=== PATIENT | female | born 1935 | race African-American/Black ===

== ENCOUNTER 2017-01-20 11:29 | Emergency (ER) | payer MEDICARE, OTHER ==
[~2017-01-20] VITALS: Ht 170.2 cm; Wt 80.0 kg
[~2017-01-20 11:29] MED LIST: LORA2TAB95; ZETA
[2017-01-20] MEDS ORDERED: TRAM50TA3 PO (11:43)
[2017-01-20] MEDS ORDERED: ZET10 PO (11:43)
[2017-01-20] MEDS ORDERED: KETOROLAC 30MG/ML VIAL IM ONE (14:45)
[2017-01-20 14:59] VITALS: BP 144/63
== END 2017-01-20 16:34 | disposition home or self-care (01) ==
LOC: ER 13:43
DX: G89.29 Other chronic pain (principal); M54.5 Low back pain; M79.604 Pain in right leg; M79.605 Pain in left leg
CPT/HCPCS: 93970; 96372; 99284; J1885

== ENCOUNTER 2018-08-17 09:51 | Inpatient (IN) | payer MEDICARE, OTHER ==
[~2018-08-17] VITALS: Ht 170.2 cm; Wt 80.1 kg
[~2018-08-17 09:51] MED LIST changes: +TRAM50TA3 PO; +ZET10 PO; -ZETA
[2018-08-17] MEDS ORDERED: ALPR-340 PO (10:12)
[2018-08-17] MEDS ORDERED: LATA2.5D2 OP (10:12)
[2018-08-17] MEDS ORDERED: DONE10TA43 PO (10:12)
[2018-08-17] MEDS ORDERED: KETOROLAC 30MG/ML VIAL IV STA (10:20)
[2018-08-17] MEDS ORDERED: ASPIRIN 81MG TABLET PO ONE (10:30)
[2018-08-17 10:35] LABS: BASOPHILS % 1.1 % (0.0-2.0); EOSINOPHILS % 0.4 % (0.0-5.0); HEMATOCRIT. 42.1 % (36.0-48.0); HEMOGLOBIN. 13.9 g/dL (12.0-16.0); LYMPHOCYTES % 26.4 % (20.0-50.0); MEAN CORPUSCULAR HEMOGLOBIN 31.1 pg (28.0-32.0); MEAN CORPUSCULAR VOLUME 94.2 fL (81.0-99.0); MEAN PLATELET VOLUME 9.3 fl (7.4-10.4); MONOCYTES % 9.9 % (2.0-8.0); NEUTROPHILS % 62.2 % (40.0-76.0); PLATELET 223 x1000/uL (130-400); RED BLOOD CELL COUNT 4.46 mill/uL (4.2-5.4); RED CELL DISTRIBUTION WIDTH 12.7 % (11.6-14.6)
[2018-08-17 10:41] LABS: CHLORIDE 105 mEq/L (98-107)
[2018-08-17] MEDS ORDERED: ALPRAZOLAM 0.5 MG TABLET PO PRN (12:00)
[2018-08-17] MEDS ORDERED: CLONIDINE 0.1MG TABLET PO PRN ×2 (12:00→14:00)
[2018-08-17] MEDS ORDERED: LORAZEPAM 0.5MG TABLET PO ONE (12:00)
[2018-08-17] MEDS ORDERED: ACETAMINOPHEN 325MG TABLET PO PRN ×2 (12:00→14:00)
[2018-08-17] MEDS ORDERED: ONDANSETRON HCL 4MG/2ML INJ IV PRN ×2 (12:00→14:00)
[2018-08-17] MEDS ORDERED: DOCUSATE SODIUM 100MG CAPSULE PO PRN ×2 (12:00→14:00)
[2018-08-17] MEDS: EZETIMIBE 10MG TABLET PO SCH (13:00)
[2018-08-17] MEDS: DONEPEZIL HCL 10MG TABLET PO SCH (13:00)
[2018-08-17] MEDS ORDERED: ENOXAPARIN 40MG/0.4ML SYR SUBCUT SCH (13:00)
[2018-08-17] MEDS ORDERED: ACETAMINOPHEN 650MG SUPP PR PRN (14:00)
[2018-08-17] MEDS ORDERED: IPRATROPIUM/ALBUTEROL 0.5-3(2.5)MG/3ML NEB INH PRN (14:00)
[2018-08-17] MEDS ORDERED: MAGNESIUM/ALUMINUM HYDROXIDE/SIMETHICONE 30ML UDC PO PRN (14:00)
[2018-08-17] MEDS ORDERED: HYDROCODONE/ACETAMINOPHEN 5/325MG TABLET PO PRN (14:00)
[2018-08-17] MEDS: NITROGLYCERIN OINT 1GM/INCH UDPKT TD SCH ×2 (14:00→20:26)
[2018-08-17] MEDS ORDERED: NA PHOS,M-B/NA PHOS,DI-BA ENEMA 118ML PR PRN (14:00)
[2018-08-17] MEDS ORDERED: DIPHENHYDRAMINE 50MG/ML VIAL IV PRN (14:00)
[2018-08-17] MEDS ORDERED: GUAIFENESIN 200MG/10ML SUGAR FREE UDC PO PRN (14:00)
[2018-08-17] MEDS ORDERED: LORAZEPAM 0.5MG TABLET PO PRN (14:00)
[2018-08-17 14:10] LABS: CREATINE KINASE 110 IU/L (26-192)
[2018-08-17 14:30] VITALS: BP 125/53
[2018-08-17] MEDS ORDERED: ASPIRIN 81MG EC TABLET PO NR (15:00)
[2018-08-17] MEDS ORDERED: REGADENOSON 0.4 MG/5 ML IV NR (15:01)
[2018-08-17 16:00] VITALS: BP 129/70
[2018-08-17 17:00] LABS: CREATINE KINASE 111 IU/L (26-192)
[2018-08-17 17:01] LABS: CREATINE KINASE MB FRACTION < 1.0 ng/mL (0.5-3.6)
[2018-08-17 18:32] LABS: CLARITY URINE CLOUDY (CLEAR); COLOR URINE DARK YELLOW (YELLOW); KETONES URINE TRACE (NEGATIVE); LEUKOCYTE ESTERASE URINE NEGATIVE (NEGATIVE); NITRITE URINE NEGATIVE (NEGATIVE); OCCULT BLOOD URINE 2+ (NEGATIVE); PROTEIN URINE TRACE (NEGATIVE); SPECIFIC GRAVITY URINE 1.035 (1.005-1.030)
[2018-08-17 18:55] LABS: *AMPHETAMINES SCREEN URINE NEGATIVE (NEGATIVE); *BARBITURATES SCREEN URINE NEGATIVE (NEGATIVE); *BENZODIAZEPINES SCREEN URINE PRESUMTIVE POSITIVE (NEGATIVE); *COCAINE SCREEN URINE NEGATIVE (NEGATIVE); METHADONE URINE SCREEN NEGATIVE (NEGATIVE); OPIATES URINE SCREEN NEGATIVE (NEGATIVE)
[2018-08-17 18:56] LABS: CANNABINOID URINE SCREEN NEGATIVE (NEGATIVE); PHENCYCLIDINE URINE SCREEN NEGATIVE (NEGATIVE)
[2018-08-17 20:00] VITALS: BP 120/51
[2018-08-17] MEDS: LATANOPROST 0.005% OPHTH DROPS 2.5ML BOTHEYE SCH (20:25)
[2018-08-17] MEDS: ATORVASTATIN CALCIUM 10MG TABLET PO SCH (20:26)
[2018-08-18] VITALS: BP 121/63
[2018-08-18 01:10] LABS: CREATINE KINASE 99 IU/L (26-192)
[2018-08-18 01:11] LABS: CREATINE KINASE MB FRACTION < 1.0 ng/mL (0.5-3.6)
[2018-08-18] MEDS: NITROGLYCERIN OINT 1GM/INCH UDPKT TD SCH ×3 (06:00→20:23)
[2018-08-18 07:49] LABS: BASOPHILS % 0.5 % (0.0-2.0); HEMATOCRIT. 38.1 % (36.0-48.0); HEMOGLOBIN. 12.8 g/dL (12.0-16.0); LYMPHOCYTES % 38.3 % (20.0-50.0); MEAN CORPUSCULAR HEMOGLOBIN 31.7 pg (28.0-32.0); MEAN CORPUSCULAR VOLUME 94.2 fL (81.0-99.0); MEAN PLATELET VOLUME 10.3 fl (7.4-10.4); MONOCYTES % 11.1 % (2.0-8.0); NEUTROPHILS % 49.1 % (40.0-76.0); PLATELET 221 x1000/uL (130-400); RED BLOOD CELL COUNT 4.04 mill/uL (4.2-5.4); RED CELL DISTRIBUTION WIDTH 12.8 % (11.6-14.6)
[2018-08-18 08:00] VITALS: BP 141/67
[2018-08-18] MEDS: DONEPEZIL HCL 10MG TABLET PO SCH (08:53)
[2018-08-18] MEDS: TRAMADOL 50MG TABLET PO PRN (08:54)
[2018-08-18 08:55] LABS: CHLORIDE 107 mEq/L (98-107)
[2018-08-18] MEDS: EZETIMIBE 10MG TABLET PO SCH (09:00)
[2018-08-18 09:11] LABS: LDL CHOLESTEROL 91 mg/dL (5-100)
[2018-08-18 09:13] LABS: T4 FREE 1.03 ng/dL (0.76-1.46)
[2018-08-18 09:14] LABS: HDL CHOLESTEROL 85 mg/dL (40-59)
[2018-08-18] MEDS: ASPIRIN 81MG EC TABLET PO SCH (10:20)
[2018-08-18] MEDS ORDERED: ALPRAZOLAM 0.5 MG TABLET PO PRN (12:00)
[2018-08-18 12:05] VITALS: BP 125/54
[2018-08-18] MEDS: CEPHALEXIN 250MG CAPSULE PO SCH ×2 (12:16→17:06)
[2018-08-18 16:00] VITALS: BP 142/56
[2018-08-18 20:00] VITALS: BP 136/55
[2018-08-18] MEDS: ATORVASTATIN CALCIUM 10MG TABLET PO SCH (20:22)
[2018-08-18] MEDS: LATANOPROST 0.005% OPHTH DROPS 2.5ML BOTHEYE SCH (20:24)
[2018-08-19] VITALS: BP 120/46
[2018-08-19] MEDS: CEPHALEXIN 250MG CAPSULE PO SCH ×3 (00:05→12:00)
[2018-08-19 04:00] VITALS: BP 125/70
[2018-08-19 05:37] LABS: BASOPHILS % 0.2 % (0.0-2.0); EOSINOPHILS % 1.2 % (0.0-5.0); HEMATOCRIT. 37.7 % (36.0-48.0); HEMOGLOBIN. 12.5 g/dL (12.0-16.0); MEAN CORPUSCULAR HEMOGLOBIN 31.1 pg (28.0-32.0); MEAN CORPUSCULAR VOLUME 93.8 fL (81.0-99.0); MONOCYTES % 10.7 % (2.0-8.0); NEUTROPHILS % 47.9 % (40.0-76.0); PLATELET 214 x1000/uL (130-400); RED BLOOD CELL COUNT 4.02 mill/uL (4.2-5.4); RED CELL DISTRIBUTION WIDTH 12.7 % (11.6-14.6)
[2018-08-19 07:30] LABS: CHLORIDE 110 mEq/L (98-107)
[2018-08-19 08:00] VITALS: BP 141/58
[2018-08-19] MEDS: ASPIRIN 81MG EC TABLET PO SCH (09:00)
[2018-08-19] MEDS: EZETIMIBE 10MG TABLET PO SCH (09:00)
[2018-08-19] MEDS: DONEPEZIL HCL 10MG TABLET PO SCH (09:00)
[2018-08-19] MEDS ORDERED: REGADENOSON 0.4 MG/5 ML IV ONE (10:49)
[2018-08-19] MEDS: TRAMADOL 50MG TABLET PO PRN (12:26)
[2018-08-19 12:41] VITALS: BP 141/58
[2018-08-19] MEDS ORDERED: AMLODIPINE 5MG TABLET PO SCH (12:45)
[2018-08-19 13:14] LABS: VITAMIN B12 SERUM > 2000.0 pg/mL (211-911)
== END 2018-08-19 14:35 | disposition home or self-care (01) | DRG 292 ==
LOC: ER 11:05 → 8WST 11:47 → EDBEDREQ 11:50 → ENRESERV 13:02 → EDBEDREQ 13:17
PROVIDERS: ADMIT Internal Medicine Geriatric Medicine; ATTEND Internal Medicine
DX: I11.0 Hypertensive heart disease with heart failure (principal); N39.0 Urinary tract infection, site not specified; F41.9 Anxiety disorder, unspecified; I50.33 Acute on chronic diastolic (congestive) heart failure; R53.1 Weakness; H40.9 Unspecified glaucoma; F32.9 Major depressive disorder, single episode, unspecified; G60.9 Hereditary and idiopathic neuropathy, unspecified; M11.261 Other chondrocalcinosis, right knee; M25.461 Effusion, right knee; R51 Headache; M19.90 Unspecified osteoarthritis, unspecified site; E78.5 Hyperlipidemia, unspecified; I10 Essential (primary) hypertension; M79.604 Pain in right leg; M79.605 Pain in left leg; T46.3X5A Adverse effect of coronary vasodilators, initial encounter; Y92.89 Other specified places as the place of occurrence of the external cause; Z86.73 Personal history of transient ischemic attack (TIA), and cerebral infarction without residual deficits; Z90.710 Acquired absence of both cervix and uterus
CPT/HCPCS: 36415; 71045; 73552; 73560; 76770; 78452; 80048; 80061; 80305; 82550; 82553; 82607; 83036; 83880; 84439; 84443; 84484; 85651; 93005; 93017; 93306; 93970; 97162; 97535; 99285; A9500; J1650; J1885; J2785

== ENCOUNTER 2018-12-28 10:15 | Emergency (ER) | payer MEDICARE ==
[~2018-12-28] VITALS: Ht 170.2 cm; Wt 82.0 kg
[~2018-12-28 10:15] MED LIST changes: +ALPR-340 PO; +DONE10TA43 PO; +EZET10TA13 PO; +LATA2.5D2 OP; -LORA2TAB95; -ZET10 PO
[2018-12-28] MEDS ORDERED: ACETAMINOPHEN 325MG TABLET PO ONE (11:00)
[2018-12-28 12:11] VITALS: BP 128/61
== END 2018-12-28 12:12 | disposition home or self-care (01) ==
LOC: ER 10:57
DX: M25.561 Pain in right knee (principal); I10 Essential (primary) hypertension; E78.00 Pure hypercholesterolemia, unspecified
CPT/HCPCS: 73562; 99283